=== PATIENT | female | born 1930 ===

== ENCOUNTER → 2018-06-03 | Outpatient (CLI) | payer MEDICARE, BC ==
[~2018-06-03] VITALS: Ht 172.7 cm; Wt 75.0 kg
[~2018-06-03] MED LIST: ALBU8HFA IH; ALEN70TA48 PO; AMLO-511 PO; IPRA4AER IH; LOSA100T20 PO; MULT-1259 PO
[2018-06-03 15:16] VITALS: BP 140/63
== END | disposition home or self-care (01) ==
LOC: SRCNTR 15:03
PROVIDERS: ATTEND Internal Medicine Critical Care Medicine
DX: J44.9 Chronic obstructive pulmonary disease, unspecified (principal); I10 Essential (primary) hypertension; M81.0 Age-related osteoporosis without current pathological fracture; E11.9 Type 2 diabetes mellitus without complications
CPT/HCPCS: G0463

== ENCOUNTER → 2018-07-08 | Outpatient (CLI) | payer MEDICARE, BC ==
[~2018-07-08] VITALS: Ht 172.7 cm; Wt 78.0 kg
[2018-07-08 13:45] VITALS: BP 148/73
== END | disposition home or self-care (01) ==
LOC: SRCNTR 13:30
PROVIDERS: ATTEND Internal Medicine Critical Care Medicine
DX: J44.9 Chronic obstructive pulmonary disease, unspecified (principal); I10 Essential (primary) hypertension; M81.0 Age-related osteoporosis without current pathological fracture; E11.9 Type 2 diabetes mellitus without complications
CPT/HCPCS: 85610; G0463